=== PATIENT | male | born 1990 | race Caucasian/White ===

== ENCOUNTER 2022-10-20 14:50 | Outpatient (OUT) | payer BC, SELFPAY ==
--- NOTE | 2022-10-20 14:58 | MR_ITS ---
[address] [address] Patient Name: FREYA HODGES MRN: [id number] date: 1990 Sex: M Assigned Patient Location: MRI Current Patient Location: MRI Accession/Order Number: [id number] Exam Date: 10/20/2022 15:05 Report Date: 10/21/2022 07:23 At the request of: LILIANA DENISE Procedure: MR shoulder RT wo con EXAMINATION: MR shoulder RT wo con HISTORY: Rotator cuff impingement syndrome of right shoulder M75.41 ; chronic right shoulder pain COMPARISON: No relevant comparison available. TECHNIQUE: A variety of imaging planes and parameters were utilized for visualization of suspected pathology. Imaging was performed without contrast. FINDINGS: ROTATOR CUFF REGION CUFF TENDONS: Minimal increased signal intensity in the supraspinatus tendon indicates tendon degeneration and/or tendinitis. No lety tear is seen. CUFF MUSCLES: Normal appearing muscles. DELTOID: Normal. No significant atrophy or tear. LONG BICEPS TENDON: Normal. No abnormal signal, attrition, or tear. LABRUM/BICEPS ANCHOR SUPERIOR: No visible labral tear or biceps anchor pathology. ANTERIOR/INFERIOR: No visible tear or attrition. POSTERIOR: No posterior labrum abnormality. CAPSULE No visible capsular laxity or thickening. AC JOINT REGION AC JOINT: Normal acromioclavicular joint. AC LIGAMENTS: Normal acromioclavicular ligament. CC LIGAMENTS: Normal coracoclavicular ligaments. ACROMION: Normal horizontal (Type I) configuration. SUBACROMIAL BURSA: Normal. No significant effusion. HYALINE CARTILAGE: No visible cartilage narrowing or focal defect. OTHER BONES: Normal proximal humerus, glenoid, and coracoid. OTHER OBSERVATIONS: Near complete lack of fluid within the joint capsule. IMPRESSION: 1. Minimal strain of the supraspinatus tendon. 2. Joint capsule is nearly void of any fluid, which may contribute to patient's symptoms. No appreciable wall thickening of the capsule. 3. No visible tear of the labrum, but evaluation is limited by lack of joint fluid. Electronically authenticated by: JF GERARD Date: 10/21/2022 07:23
== END 2022-10-20 14:51 ==
LOC: MRI 14:53
PROVIDERS: PCP Family Medicine; Visit Provider Orthopaedic Surgery
DX: M75.41 Impingement syndrome of right shoulder (principal)
CPT/HCPCS: 73221